=== PATIENT | female | born 1935 | race Caucasian/White ===

== ENCOUNTER 2022-07-05 11:03 | Day surgery (SDC) | payer MEDICARE ==
[2022-07-04 12:19] VITALS: BMI 19.2
[2022-07-05 11:44] LABS: Hemoglobin 13.8 g/dL (12.0-15.5); Mean Corpuscular HGB CONC 32.9 g/dL (32.0-36.0); Mean Corpuscular Hemoglobin 29.2 pg (27.0-33.0); Mean Platelet Volume 9.3 fl (7.4-10.4); Platelet Count 297 10x3/uL (150-450); RBC Distribution Width 14.3 % (11.5-14.5); Red Blood Cell (RBC) Count 4.72 10x6/uL (3.90-5.03); White Blood Cell (WBC) Count 6.9 10x3/uL (3.5-10.5)
[2022-07-05 11:55] LABS: PTT 23.6 sec (22.0-33.0); Prothrombin Time 10.4 sec (9.5-12.1)
[2022-07-05 12:00] LABS: Anion Gap 14 mmol/L (10-20); BUN (Urea Nitrogen) 26 mg/dL (9.8-20.1); Calc. Creatinine Clearance 31 mL/min (70-130); Calcium 9.6 mg/dL (7.8-10.44); Carbon Dioxide 25 mmol/L (23-31); Chloride 103 mmol/L (98-107); Estimated GFR 56; Glucose 113 mg/dL (83-110); Potassium 3.7 mmol/L (3.5-5.1); Sodium 138 mmol/L (136-145)
[2022-07-05] MEDS ORDERED: Famotidine/PF 20 mg/2ml Vial ONE ×2 (12:22→12:55)
[2022-07-05] MEDS ORDERED: Fentanyl 100 MCG/2 ML VIAL ONE (12:53)
[2022-07-05] MEDS ORDERED: PROPOFOL 20 ML ONE ×3 (12:53→13:30)
[2022-07-05] MEDS ORDERED: Ondansetron PF 4 MG/2 ML Vial ONE (12:53)
[2022-07-05] MEDS ORDERED: CEFAZOLIN 2 GM VIAL ONE (12:55)
[2022-07-05] MEDS ORDERED: Lidocaine 2% PF 5 ML VIAL ONE (13:03)
[2022-07-05] MEDS ORDERED: Iopamidol 10 ML FS ONE ×2 (13:07→13:40)
[2022-07-05] MEDS ORDERED: Bupivacaine/Epinephrine 0.25% 30 ML VIAL ONE (13:07)
[2022-07-05] MEDS ORDERED: Iopamidol 20 ML FS ONE (13:08)
[2022-07-05] MEDS ORDERED: PHENYLEPHRINE-NS 100 MCG/ML 10 ML SYRINGE ONE (13:49)
== END 2022-07-05 15:25 | disposition home or self-care (01) ==
LOC: CSHSDC 11:03
PROVIDERS: ATTEND Orthopaedic Surgery
PROC: 0QS03ZZ Reposition Lumbar Vertebra, Percutaneous Approach (ICD-10-PCS; principal; 2022-07-05)
PROC: 0QU03JZ Supplement Lumbar Vertebra with Synthetic Substitute, Percutaneous Approach (ICD-10-PCS; 2022-07-05)
DX: M48.56XA Collapsed vertebra, not elsewhere classified, lumbar region, initial encounter for fracture (principal); K21.9 Gastro-esophageal reflux disease without esophagitis; I10 Essential (primary) hypertension; Z79.899 Other long term (current) drug therapy; Z88.5 Allergy status to narcotic agent
CPT/HCPCS: 22514; 72110; 80048; 85027; 85610; 85730; 86850; 86900; 86901; C1713 ×2; 36415; J2001; J2405; J2704; J3010; Q9966; S0028